=== PATIENT | female | born 2000 | race Caucasian/White ===

== ENCOUNTER 2023-09-14 18:00 | Emergency (ER) | payer BC, OTHER | END 2023-09-14 19:33 | disposition home or self-care (01) | LOC: JP.ED 18:00 | DX: S83.92XA Sprain of unspecified site of left knee, initial encounter (principal); F17.210 Nicotine dependence, cigarettes, uncomplicated; W01.0XXA Fall on same level from slipping, tripping and stumbling without subsequent striking against object, initial encounter | CPT/HCPCS: 73562-26-LT; 73562-LT; 99283 ==